=== PATIENT | female | born 1975 | race Caucasian/White ===

== ENCOUNTER 2017-07-03 13:24 | Emergency (ER) | payer BC, OTHER ==
--- NOTE | 2017-07-03 13:46 | Emergency Department Record ---
History of Present Illness - General Chief Complaint: Abdominal Pain Stated Complaint: abdominal pain radiating to back Time Seen by Provider: 07/03/17 13:41 Source: Patient, RN notes reviewed Mode of Arrival: Ambulatory - History of Present Illness Initial Comments: left lower quad abdominal pain which started at noon today and it radiates into her left flank. No vomiting she made herself vomit to see if it would help her pain. Onset/Timin -: Minutes(s) Location: L Flank, LLQ Severity: Moderate Severity scale (1-10): 10 Quality: Aching Consistency: Intermittent Associated Symptoms: Denies other symptoms - Related Data Home Medications Medication Instructions Recorded Confirmed Last Taken Ergocalciferol (Vitamin D2) 100,000 unit PO WEEKLY 07/03/17 07/03/17 1 Day Ago [Vitamin D2] ~07/02/17 Fingolimod HCl [Gilenya] 0.5 mg PO TID 07/03/17 07/03/17 1 Day Ago ~07/02/17 Zolpidem Tartrate 10 mg PO QHS 07/03/17 07/03/17 1 Day Ago ~07/02/17 Previous Rx's Medication Instructions Recorded Hydrocodone/Acetaminophen [[place] 1 each PO Q4HR #30 tablet 07/03/17 5-325 Tablet] Allergies Allergy/AdvReac Type Severity Reaction Status Date / Time No Known Drug Allergies Allergy Verified 07/03/17 13:38 Travel Screening - Travel/Exposure Within Last 30 Days Have you traveled within the last 30 days?: No - Travel/Exposure Within Last Year Have you traveled outside the [place] in the last year?: No - Additonal Travel Details Have you been exposed to anyone with a communicable illness?: No - Travel Symptoms Symptom Screening: None Past Medical History - SOCIAL HISTORY Smoking Status: Never smoker Alcohol Use: Occasional Drug Use: None - RESPIRATORY Hx Respiratory Disorders: No - CARDIOVASCULAR Hx Cardio Disorders: No - NEURO Hx Neuro Disorders: Yes Comment:: MS - GI Hx GI Disorders: Yes Hx Abdominal Pain: Yes Hx Obstructive Bowel: Yes (X 12) - Hx Genitourinary Disorders: Yes - ENDOCRINE Hx Diabetes: Yes Hx Thyroid Disease: Yes - MUSCULOSKELETAL Hx Musculoskeletal Disorders: Yes - PSYCH Hx Psych Problems: No - HEMATOLOGY/ONCOLOGY Hx Anemia: No Hx Blood Disorders: No Hx Bruising: No Hx Cancer: No Family Medical History Any Significant Family History?: Yes Hx Diabetes: Mother Hx Heart Disease: Mother Course Vital Signs 07/03/17 13:27 Temperature 97.9 F Pulse Rate 76 Respiratory 18 Rate Blood Pressure 137/96 Pulse Ox 99 Medical Decision Making - Data Complexity MDM Data: Labs Ordered and/or Reviewed, X-Ray Ordered and/or Reviewed (CT 5 by 4.9 cm cystic lesion left adenexal, US complex ovarian cyst) - Lab Data Result diagrams: 07/03/17 13:55 07/03/17 13:55 Disposition Clinical Impression: Ovarian cyst Qualifiers: Laterality: left Qualified Code(s): N83.202 - Unspecified ovarian cyst, left side Disposition: Home, Self-Care Condition: (1) Good Instructions: Abdominal Pain (ED) Additional Instructions: follow 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 Rucker Prescriptions: Hydrocodone/Acetaminophen [[place] 5-325 Tablet] 1 each PO Q4HR #30 tablet Forms: Patient Portal Access Time of Disposition: 17:00 Quality - Quality Measures Quality Measures: N/A - Blood Pressure Screening Does Patient Have Any of the Following: No Blood Pressure Classification: Hypertensive Reading Systolic Measurement: 137 Diastolic Measurement: 96 Screening for High Blood Pressure: < Pre-Hypertensive BP, F/U Documented > [ [id number]] Pre-Hypertensive Follow-up Interventions: Referral to alternative/primary care provider.
[2017-07-03 14:05] LABS: HEMATOCRIT 38.6 % (35.0-47.0); HEMOGLOBIN 11.6 gm/dl (11.6-16.0); MEAN CELL VOLUME 78.9 fl (81-97); MEAN CORPUSCULAR HEMOGLOBIN 23.7 pg (27-33); MEAN CORPUSCULAR HGB CONC 30.1 g/dl (32-36); MEAN PLATELET VOLUME 9.9 fl (7.4-10.4); PLATELET COUNT 247 K/uL (130-400); RED BLOOD COUNT 4.89 M/uL (3.80-5.40); RED CELL DISTRIBUTION WIDTH 16.9 % (11.5-14.5)
[2017-07-03] MEDS: 0.9 % SODIUM CHLORIDE 1000ML 1,000 ML IV PRN (14:13)
[2017-07-03] MEDS: ONDANSETRON HCL IV 4 MG/2 ML VIAL IV ONE (14:13)
[2017-07-03] MEDS: KETOROLAC 30 MG/ML VIAL IVP ONE (14:15)
[2017-07-03 14:17] LABS: BLOOD UREA NITROGEN 16 mg/dL (6-20); CREATININE 0.8 mg/dL (0.5-0.9); EST GLOMERULAR FILTRATION RATE > 60 mL/min
[2017-07-03 14:20] LABS: GLUCOSE,RANDOM 98 mg/dL (74-109)
[2017-07-03 14:23] LABS: LIPASE 37 U/L (13-60)
[2017-07-03 14:24] LABS: PLATELET ESTIMATE NORMAL (NORMAL)
[2017-07-03] MEDS: ONDANSETRON HCL IV 4 MG/2 ML VIAL IVP ONE (15:21)
[2017-07-03] MEDS: HYDROMORPHONE HCL 2 MG/ML VIAL IVP ONE (15:23)
--- NOTE | 2017-07-04 07:38 | CT SCAN REPORT ---
EXAM: CT OF THE ABDOMEN AND PELVIS WITHOUT CONTRAST HISTORY: LEFT FLANK PAIN. TECHNIQUE: Sequential axial images were obtained from the diaphragms through the ischiorectal fossa without intravenous or oral contrast administration. FINDINGS: There is a tiny nonobstructing calculus in the inferior pole of the left kidney measuring [address] findings suggestive of obstructive uropathy. The visualized lung bases appear normal. The nonopacified liver appears normal. The gallbladder has been surgically removed. There is postop surgical change consistent with gastric sleeve procedure. The spleen appears normal. The adrenal glands appear normal. The small bowel appears normal. There is a large cystic mass in the left adnexal region. This measures approximately 5.6 cm x 4.7 cm. Further evaluation with ultrasound is recommended. The osseous structures are normal. IMPRESSION: 1. NO CT FINDINGS SUGGESTIVE OF OBSTRUCTIVE UROPATHY. THERE IS A 5.3 X 4.7 CM CYSTIC MASS IN THE LEFT ADNEXAL REGION. THIS SHOULD BE FURTHER EVALUATED WITH ULTRASOUND. 2. NONOBSTRUCTING CALCULI IN THE LEFT KIDNEY. J[facility]BER: [id number] [facility]
--- NOTE | 2017-07-04 08:10 | ULTRASOUND REPORT ---
EXAM: PELVIC ULTRASOUND HISTORY: ADNEXAL MASS. TECHNIQUE: Transabdominal and transvaginal sonographic images of the pelvis were obtained. Comparison: CT from today's date. FINDINGS: On transabdominal images the uterus measures 8.8 x 5.4 x 5.4 cm. The myometrium is homogeneous. The ovaries and endometrium are not well seen transabdominally. On transvaginal imaging, the myometrium is homogeneous. The endometrium measures 14 mm in thickness. The left ovary measures 6.9 x 7.4 cm. There is a complex 4.8 x 5.6 cm cystic mass of the left ovary. This contains peripheral areas of nodularity and septation. The right ovary is not well seen possibly due to its position in the pelvis. There is a small amount of free fluid. Doppler and spectral analysis with color flow was utilized. Arterial and venous flow to the left ovary. IMPRESSION: NONSPECIFIC COMPLEX LEFT OVARIAN CYSTIC MASS, ABOVE. BOTH BENIGN AND MALIGNANT ETIOLOGIES SHOULD BE CONSIDERED. GYNECOLOGIC FOLLOW-UP RECOMMENDED. SMALL AMOUNT OF FREE FLUID. [facility]BER: [id number] [facility]
== END 2017-07-03 17:51 | disposition home or self-care (01) ==
LOC: ER 13:24
DX: N83.202 Unspecified ovarian cyst, left side (principal); R10.32 Left lower quadrant pain
CPT/HCPCS: 99284 ×2; 96376; 96374; 96375; 83690; 80048; 85027; 76856; 76830; 74176; J1885; J2405; J1170